=== PATIENT | male | born 1975 | race American Indian/Alaskan Native ===

== ENCOUNTER 2016-07-14 12:54 | Emergency (ER) | payer SELFPAY ==
[2016-07-14 14:20] LABS: Urine Drugs of Abuse Note Disclamer
[2016-07-14 14:41] LABS: Alanine Aminotransferase 48 units/L (7-56); Albumin 4.1 g/dL (3.9-5); Albumin/Globulin Ratio 1.2 %; Alkaline Phosphatase 69 units/L (35-129); Bilirubin,Total 0.4 mg/dL (0.1-1.2); Blood Urea Nitrogen 9 mg/dL (9-20); Calcium 8.7 mg/dL (8.4-10.2); Carbon Dioxide 21 mmol/L (22-30); Glucose 131 mg/dL (75-100); Magnesium 2.1 mg/dL (1.7-2.3); Total Protein 7.6 g/dL (6.3-8.2)
[2016-07-14 14:42] LABS: Anion Gap 21 mmol/L; Chloride 99.2 mmol/L (98-107); Potassium 3.8 mmol/L (3.6-5.0); Sodium 137 mmol/L (137-145)
[2016-07-14 14:43] LABS: Eosinophils % (Auto) 0.3 % (0.0-4.3)
[2016-07-14 14:52] LABS: Hematocrit 44.2 % (35.5-45.6); Hemoglobin 14.6 gm/dl (11.8-15.2); Mean Corpuscular HGB Conc 33 % (32-34); Mean Corpuscular Hemoglobin 30 pg (28-32); Mean Corpuscular Volume 90 fl (84-94); Platelet Count 136 K/mm3 (140-440); Red Blood Count 4.92 M/mm3 (3.65-5.03); Red Cell Distribution Width 13.9 % (13.2-15.2); White Blood Count 5.5 K/mm3 (4.5-11.0)
[2016-07-14 15:00] LABS: Bilirubin,Urine NEG (Negative); Blood,Urine NEG (Negative); Ketones,Urine NEG (Negative); Leukocyte Esterase,Urine NEG (Negative); Nitrite,Urine NEG (Negative); Protein,Urine <15 mg/dL mg/dL (Negative); RBC,Urine < 1.0 /HPF (0.0-6.0); Urobilinogen,Urine < 2.0 mg/dL (<2.0)
[2016-07-14 15:07] LABS: WBC,Urine < 1.0 /HPF (0.0-6.0)
[2016-07-14 15:23] LABS: Basophils % (Manual) 0 % (0.0-1.8); Blastocytes % (Manual) 0 %; Eosinophils % (Manual) 0 % (0.0-4.3)
[2016-07-14 15:24] LABS: Diff Status Complete; RBC Morphology Normal
[2016-07-14 19:32] VITALS: BP 110/79
[2016-07-14] MEDS ORDERED: NACL 0.9% 1000 ML 1,000 ML IV ONE (22:04)
[2016-07-14] MEDS ORDERED: VITAMIN B-1 100 MG in NACL 0.9% 50 ML IV ONE (22:04)
--- NOTE | 2016-07-14 22:06 | Emergency Department Report ---
HPI - General Chief Complaint: Dizziness Time Seen by Provider: 07/14/16 21:58 - HPI HPI: This is a 41-year-old Afro[place]Citizen [place] male who presents to the emergency department via EMS from work with complaint of feeling very dizzy. 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 He denies any past medical history. No recent travel or sick contacts at home. He did not take anything and was not given anything for his symptoms prior to presentation. He does not have a primary care doctor. He denies tobacco or illicit drug use or abuse. Patient's blood work originally came back showing a large amount of alcohol in his system. The patient denies any drinking today and says he drank 24 ounces of beer last night. 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) - Surgical History Past Surgical History?: Yes Additional Surgical History: heart surgery unknown infant - Social History Smoking Status: Never Smoker Substance Use Type: Alcohol ED Review of Systems ROS: Stated complaint: DIZZINESS Other details as noted in HPI Comment: All other systems reviewed and negative Constitutional: denies: chills, fever Eyes: denies: eye pain, eye discharge, vision change ENT: denies: ear pain, throat pain Respiratory: denies: cough, shortness of breath, wheezing Cardiovascular: denies: chest pain, palpitations Gastrointestinal: denies: abdominal pain, nausea, diarrhea Genitourinary: denies: urgency, dysuria Musculoskeletal: denies: back pain, joint swelling, arthralgia Skin: denies: rash, lesions Neurological: other (dizziness). denies: headache, confusion Physical Exam - Physical Exam Vital Signs: Vital Signs 07/14/16 07/14/16 13:10 19:31 Temperature 98.5 F 98.0 F Pulse Rate 97 H 102 H Respiratory 16 18 Rate Blood Pressure 131/85 110/79 O2 Sat by Pulse 100 100 Oximetry Physical Exam: GENERAL: The patient is well-developed well-nourished. HEENT: Normocephalic. Atraumatic. Extraocular motions are intact. Patient has moist mucous membranes. Pupils equal reactive to light bilaterally. No nystagmus. NECK: Supple. Trachea is midline. CHEST/LUNGS: Clear to auscultation. There is no respiratory distress noted. HEART/CARDIOVASCULAR: Regular. There is no tachycardia. There is no gallop rub or murmur. ABDOMEN: Abdomen is soft, nontender. Patient has normal bowel sounds. There is no abdominal distention. SKIN: There is no rash. There is no edema. There is no diaphoresis. NEURO: The patient is awake, alert, and oriented. The patient is cooperative. The patient has no focal neurologic deficits. The patient has normal speech. Cranial nerves II through XII grossly intact. MUSCULOSKELETAL: There is no tenderness or deformity. There is no limitation range of motion. There is no evidence of acute injury. Muscle strength 5 out of 5 upper and lower extremity bilaterally. Cap refill less than 2 seconds. ED Course Vital Signs 07/14/16 07/14/16 13:10 19:31 Temperature 98.5 F 98.0 F Pulse Rate 97 H 102 H Respiratory 16 18 Rate Blood Pressure 131/85 110/79 O2 Sat by Pulse 100 100 Oximetry ED Medical Decision Making - Lab Data Result diagrams: 07/14/16 13:54 07/14/16 13:54 - EKG Data -: EKG Interpreted by Me EKG shows normal: sinus rhythm, axis, intervals, QRS complexes, ST-T waves Rate: normal - EKG Data When compared to previous EKG there are: previous EKG unavailable Interpretation: normal EKG - Medical Decision Making 41-year-old male presents to the emergency department complaining of some nonspecific dizziness and lightheadedness that he said occurred at work when he smell some noxious chemicals. This sounds like an appropriate story, but I believe that there is more to it as when I looked at the patient's blood alcohol level of 0.33. Patient says that he had a 24 ounce. The night before but this would not cause such an elevated alcohol level. I believe that the patient was either drinking through the morning or at work. I followed the patient's blood alcohol level until 6 AM in which it was down under the legal limit of 0.07. The rest the patient's labs are mostly unremarkable. At no point did the patient have any focal, motor or sensory deficits. His cranial nerves appear intact. Eventually patient was up in the emergency department and appeared stable while ambulating. Patient appears safe for discharge home with this time. He has been encouraged to stay away from any further alcohol use and is given referrals for primary care. He will return to the ER with any worsening of symptoms or any acute distress. - Differential Diagnosis vertigo, alcohol abuse, hypoglycemia, TIA Critical Care Time: No Critical care attestation.: If time is entered above; I have spent that time in minutes in the direct care of this critically ill patient, excluding procedure time. ED Disposition Clinical Impression: Alcohol abuse, Dizziness Alcohol intoxication Qualifiers: Complication of substance-induced condition: with unspecified complication Qualified Code(s): F10.129 - Alcohol abuse with intoxication, unspecified Disposition: DISCHARGED TO HOME OR SELFCARE Is pt being admited?: No Condition: Stable Instructions: Alcohol Intoxication (ED), Abuse of Alcohol (ED) Additional Instructions: Please follow-up with a primary care doctor in the next few days. Please try to avoid any further alcohol use. Return to the emergency department with any worsening of her symptoms or any acute distress. Referrals: PRIMARY MD MARTHA [Primary Care Provider] - 3-5 Days MARSHALL BADILLO MD [Staff Physician] - 3-5 Days [facility] [Outside] - 3-5 Days Time of Disposition: 06:09
== END 2016-07-15 07:00 | disposition home or self-care (01) ==
LOC: ED 12:54
DX: R42 Dizziness and giddiness (principal); F10.129 Alcohol abuse with intoxication, unspecified; Z85.71 Personal history of Hodgkin lymphoma
CPT/HCPCS: 36415; 80053; 80307; 81001; 82140; 82962; 83735; 84443; 85007; 85025; 93005; 93010; 96365; 99284; G0480; J3411; J7030; 80320

== ENCOUNTER 2016-09-19 17:32 | Emergency (ER) | payer SELFPAY ==
[2016-09-19 19:14] LABS: Basophils % (Auto) 0.9 % (0.0-1.8); Eosinophils % (Auto) 0.1 % (0.0-4.3); Hematocrit 43.3 % (35.5-45.6); Hemoglobin 14.4 gm/dl (11.8-15.2); Mean Corpuscular HGB Conc 33 % (32-34); Mean Corpuscular Hemoglobin 30 pg (28-32); Mean Corpuscular Volume 90 fl (84-94); Red Blood Count 4.83 M/mm3 (3.65-5.03); Red Cell Distribution Width 14.9 % (13.2-15.2); White Blood Count 7.9 K/mm3 (4.5-11.0)
[2016-09-19 19:18] LABS: Alanine Aminotransferase 44 units/L (7-56); Albumin 4.5 g/dL (3.9-5); Albumin/Globulin Ratio 1.3 %; Alkaline Phosphatase 59 units/L (35-129); Anion Gap 24 mmol/L; BUN/Creatinine Ratio 13.33; Blood Urea Nitrogen 8 mg/dL (9-20); Calcium 9.2 mg/dL (8.4-10.2); Carbon Dioxide 22 mmol/L (22-30); Chloride 94.1 mmol/L (98-107); Glucose 101 mg/dL (75-100); Lipase 65 units/L (13-60); Potassium 3.8 mmol/L (3.6-5.0); Sodium 136 mmol/L (137-145)
[2016-09-19 19:31] LABS: Platelet Count 158 K/mm3 (140-440)
[2016-09-19 20:42] LABS: Bilirubin,Urine NEG (Negative); Blood,Urine SM (Negative); Ketones,Urine NEG (Negative); Leukocyte Esterase,Urine NEG (Negative); Nitrite,Urine NEG (Negative); RBC,Urine < 1.0 /HPF (0.0-6.0); Urobilinogen,Urine < 2.0 mg/dL (<2.0)
[2016-09-20 00:42] VITALS: BP 122/82
== END 2016-09-19 20:23 | disposition left against medical advice (07) ==
LOC: ED 17:32
DX: R10.9 Unspecified abdominal pain (principal); R11.2 Nausea with vomiting, unspecified; R19.7 Diarrhea, unspecified; Z53.21 Procedure and treatment not carried out due to patient leaving prior to being seen by health care provider
CPT/HCPCS: 36415; 80053; 81001; 83690; 85025

== ENCOUNTER 2016-10-14 07:21 | Emergency (ER) | payer SELFPAY ==
[2016-10-14 07:50] VITALS: BP 119/84
[2016-10-14 08:19] LABS: Hematocrit 43.5 % (35.5-45.6); Hemoglobin 14.3 gm/dl (11.8-15.2); Mean Corpuscular HGB Conc 33 % (32-34); Mean Corpuscular Hemoglobin 29 pg (28-32); Mean Corpuscular Volume 89 fl (84-94); Platelet Count 161 K/mm3 (140-440); Red Blood Count 4.89 M/mm3 (3.65-5.03); Red Cell Distribution Width 14.5 % (13.2-15.2)
[2016-10-14 08:38] LABS: Alanine Aminotransferase 38 units/L (7-56); Albumin/Globulin Ratio 1.3 %; Alkaline Phosphatase 75 units/L (35-129); Anion Gap 22 mmol/L; BUN/Creatinine Ratio 8.57; Blood Urea Nitrogen 6 mg/dL (9-20); Calcium 8.2 mg/dL (8.4-10.2); Carbon Dioxide 22 mmol/L (22-30); Chloride 102.3 mmol/L (98-107); Glucose 93 mg/dL (75-100); Lipase 56 units/L (13-60); Potassium 3.8 mmol/L (3.6-5.0); Sodium 142 mmol/L (137-145); Total Protein 7.2 g/dL (6.3-8.2)
[2016-10-14 09:35] LABS: Basophils % (Manual) 0 % (0.0-1.8); Blastocytes % (Manual) 0 %; Diff Status Complete; Giant Platelets Few; Platelet Estimate Consistent w Auto; RBC Morphology Normal
[2016-10-14 09:39] LABS: Bilirubin,Urine NEG (Negative); Blood,Urine SM (Negative); Ketones,Urine NEG (Negative); Leukocyte Esterase,Urine NEG (Negative); Mucus,Urine FEW /HPF; Nitrite,Urine NEG (Negative); RBC,Urine < 1.0 /HPF (0.0-6.0); Urobilinogen,Urine < 2.0 mg/dL (<2.0); WBC,Urine < 1.0 /HPF (0.0-6.0)
--- NOTE | 2016-10-18 17:00 | ED Elopement Review ---
ED Pt Elopement review - Results review Lab results: Laboratory Tests 10/14/16 10/14/16 10/14/16 07:52 07:52 09:03 WBC 4.0 L RBC 4.89 Hgb 14.3 Hct 43.5 MCV 89 MCH 29 MCHC 33 RDW 14.5 Plt Count 161 [place] % (Auto) Unmanned Equipment Operator Add Manual Diff Complete Total Counted 100 Seg Neuts % (Manual) 56.0 Band Neutrophils % 1.0 Lymphocytes % (Manual) 33.0 Reactive Lymphs % (Man) 0 Monocytes % (Manual) 8.0 H Eosinophils % (Manual) 2.0 Basophils % (Manual) 0 Metamyelocytes % 0 Myelocytes % 0 Promyelocytes % 0 Blast Cells % 0 Nucleated RBC % Not Reportable Seg Neutrophils # Man 2.2 Band Neutrophils # 0.0 Lymphocytes # (Manual) 1.3 Abs React Lymphs (Man) 0.0 Monocytes # (Manual) 0.3 Eosinophils # (Manual) 0.1 Basophils # (Manual) 0.0 Metamyelocytes # 0.0 Myelocytes # 0.0 Promyelocytes # 0.0 Blast Cells # 0.0 WBC Morphology Not Reportable Hypersegmented Neuts Not Reportable Hyposegmented Neuts Not Reportable Hypogranular Neuts Not Reportable Smudge Cells Not Reportable Toxic Granulation Not Reportable Toxic Vacuolation Not Reportable Dohle Bodies Not Reportable Pelger-Huet Anomaly Not Reportable [place] Rods Not Reportable Platelet Estimate Consistent w auto Clumped Platelets Not Reportable Plt Clumps, EDTA Not Reportable Large Platelets Not Reportable Giant Platelets Few Platelet Satelliting Not Reportable Plt Morphology Comment Not Reportable RBC Morphology Normal Dimorphic RBCs Not Reportable Polychromasia Not Reportable Hypochromasia Not Reportable Poikilocytosis Not Reportable Anisocytosis Not Reportable Microcytosis Not Reportable Macrocytosis Not Reportable Spherocytes Not Reportable Pappenheimer Bodies Not Reportable Sickle Cells Not Reportable Target Cells Not Reportable Tear Drop Cells Not Reportable Ovalocytes Not Reportable Helmet Cells Not Reportable [place] Bodies Not Reportable [place] Rings Not Reportable Rake Cells Not Reportable Bite Cells Not Reportable Crenated Cell Not Reportable Elliptocytes Not Reportable Acanthocytes (Spur) Not Reportable Rouleaux Not Reportable Hemoglobin C Crystals Not Reportable Schistocytes Not Reportable Malaria parasites Not Reportable Alexis Bodies Not Reportable Hem Pathologist Commnt No Sodium 142 Potassium 3.8 Chloride 102.3 Carbon Dioxide 22 Anion Gap 22 BUN 6 L Creatinine 0.7 L Estimated GFR > 60 BUN/Creatinine Ratio 8.57 Glucose 93 Calcium 8.2 L Total Bilirubin 0.30 AST 69 H ALT 38 Alkaline Phosphatase 75 Total Protein 7.2 Albumin 4.0 Albumin/Globulin Ratio 1.3 Lipase 56 Urine Color Yellow Urine Turbidity Clear Urine pH 6.0 Ur Specific [place] 1.012 Urine Protein 100 mg/dl Urine Glucose (UA) Neg Urine Ketones Neg Urine Blood Sm Urine Nitrite Neg Urine Bilirubin Neg Urine Urobilinogen < 2.0 Ur Leukocyte Esterase Neg Urine WBC (Auto) < 1.0 Urine RBC (Auto) < 1.0 Urine Mucus Few - Call Back decision Pt Call Back Decision: No action required
== END 2016-10-14 14:34 | disposition left against medical advice (07) ==
LOC: ED 07:21
DX: R10.9 Unspecified abdominal pain (principal); Z53.21 Procedure and treatment not carried out due to patient leaving prior to being seen by health care provider
CPT/HCPCS: 36415; 80053; 81001; 83690; 85007; 85025